=== PATIENT | female | born 1995 | race Caucasian/White ===

== ENCOUNTER 2016-08-13 15:13 | Emergency (ER) | payer OTHER, BC ==
[~2016-08-13 15:13] MED LIST: AMOXICILLIN; ZOFRAN ODT4 MG PO
[2016-08-13] MEDS ORDERED: BIRTH CONTROL (15:23)
== END 2016-08-13 16:35 ==
LOC: EDMED 15:13
PROC: 2W3KX1Z Immobilization of Left Finger using Splint (ICD-10-PCS; principal; 2016-08-13)
DX: S62.393A Other fracture of third metacarpal bone, left hand, initial encounter for closed fracture (principal); V86.59XA Driver of other special all-terrain or other off-road motor vehicle injured in nontraffic accident, initial encounter; Y92.89 Other specified places as the place of occurrence of the external cause; Y99.0 Civilian activity done for income or pay